=== PATIENT | female | born 1975 | race Caucasian/White ===

== ENCOUNTER 2023-11-12 10:46 | Emergency (ER) | payer OTHER ==
[~2023-11-12] VITALS: Ht 152.4 cm; Wt 76.2 kg
[2023-11-12 11:03] VITALS: BP 101/55; PULSE 86; RESP 16; TEMP 98.4; O2SAT 99
== END 2023-11-12 13:47 | disposition home or self-care (01) ==
LOC: ER 10:46
DX: Z00.00 Encounter for general adult medical examination without abnormal findings (principal); I10 Essential (primary) hypertension; E11.9 Type 2 diabetes mellitus without complications; Z86.73 Personal history of transient ischemic attack (TIA), and cerebral infarction without residual deficits
CPT/HCPCS: 99281

== ENCOUNTER 2023-12-07 00:28 | Emergency (ER) | payer MEDICAID, OTHER ==
[~2023-12-07] VITALS: Ht 152.4 cm; Wt 75.0 kg
[2023-12-07 00:31] VITALS: TEMP 98.4; O2SAT 100
[2023-12-07] MEDS: KETOROLAC 30MG/ML VIAL IM STA (02:05)
[2023-12-07] MEDS: METOCLOPRAMIDE HCL 10MG/2ML VIAL IM ONE (02:05)
[2023-12-07 02:26] LABS: POTASSIUM 3.7 mEq/L (3.5-5.1)
[2023-12-07 02:28] LABS: CALCIUM 10.1 mg/dL (8.7-10.4)
[2023-12-07 02:39] LABS: BASOPHILS % 0.6 % (0.0-2.0); EOSINOPHILS % 3.6 % (0.0-5.0); HEMATOCRIT. 42.3 % (36.0-48.0); LYMPHOCYTES % 27.1 % (20.0-50.0); MEAN CORPUSCULAR HEMOGLOBIN 31.9 pg (28.0-32.0); MEAN CORPUSCULAR HGB CONC 33.1 g/dL (31.0-37.0); MEAN CORPUSCULAR VOLUME 96.6 fL (81.0-99.0); MONOCYTES % 7.9 % (2.0-8.0); NEUTROPHILS % 60.8 % (40.0-76.0); PLATELET 266 x1000/uL (130-400); RED BLOOD CELL COUNT 4.38 mill/uL (4.2-5.4); RED CELL DISTRIBUTION WIDTH 12.7 % (11.6-14.6); WHITE BLOOD COUNT 11.4 x1000/uL (4.5-11.0)
[2023-12-07] MEDS ORDERED: CIPHCO RIGHT EAR (03:13)
[2023-12-07] MEDS ORDERED: NAPR-681 PO (03:13)
[2023-12-07] MEDS ORDERED: MECL-299 MT (03:13)
[2023-12-07 03:30] VITALS: BP 136/78; PULSE 80; RESP 18
== END 2023-12-07 03:31 | disposition home or self-care (01) ==
LOC: ER 00:28
DX: R51.9 Headache, unspecified (principal); H60.8X1 Other otitis externa, right ear; E11.9 Type 2 diabetes mellitus without complications; I10 Essential (primary) hypertension
CPT/HCPCS: 99284; 80048; 85025; 36415; 96372; J1885; J2765

== ENCOUNTER 2024-03-23 08:26 | Emergency (ER) | payer MEDICAID, OTHER ==
[~2024-03-23] VITALS: Ht 144.8 cm; Wt 73.5 kg
[~2024-03-23 08:26] MED LIST: CIPHCO RIGHT EAR; MECL-299 MT; NAPR-681 PO
[2024-03-23 08:32] VITALS: BP 124/89; PULSE 89; RESP 16; TEMP 98.5; O2SAT 100; O2SAT 99
[2024-03-23 09:34] LABS: HEMATOCRIT 43.5 % (36.0-48.0); HEMOGLOBIN 14.2 g/dL (12.0-16.0); MEAN CORPUSCULAR HEMOGLOBIN 30.6 pg (28.0-32.0); MEAN CORPUSCULAR HGB CONC 32.6 g/dL (31.0-37.0); MEAN CORPUSCULAR VOLUME 93.7 fL (81.0-99.0); PLATELET 276 x1000/uL (130-400); RED BLOOD CELL COUNT 4.65 mill/uL (4.2-5.4); RED CELL DISTRIBUTION WIDTH 13.6 % (11.6-14.6); WHITE BLOOD COUNT 10.6 x1000/uL (4.5-11.0)
[2024-03-23 09:44] LABS: CHLORIDE 106 mEq/L (98-107); POTASSIUM 4.4 mEq/L (3.5-5.1); SODIUM 136 mEq/L (136-145)
[2024-03-23 09:45] LABS: CALCIUM 9.7 mg/dL (8.7-10.4); CARBON DIOXIDE 23 mEq/L (21-32)
[2024-03-23 09:50] LABS: GLUCOSE 170 mg/dL (70-105); UREA NITROGEN BLOOD 19 mg/dL (9-23)
[2024-03-23 09:51] LABS: TROPONIN I HIGH SENSITIVITY 4 ng/L (3.0-34)
[2024-03-23] MEDS ORDERED: IBUP-2029 MT (10:51)
== END 2024-03-23 11:22 | disposition home or self-care (01) ==
LOC: ER 08:26
DX: R07.89 Other chest pain (principal); E11.9 Type 2 diabetes mellitus without complications; E78.00 Pure hypercholesterolemia, unspecified; I10 Essential (primary) hypertension; Z86.73 Personal history of transient ischemic attack (TIA), and cerebral infarction without residual deficits; Z79.899 Other long term (current) drug therapy
CPT/HCPCS: 36415; 71045; 80048; 84484; 85027; 93005; 99285